=== PATIENT | male | born 1995 | race Caucasian/White ===

== ENCOUNTER 2023-11-19 22:10 | Emergency (ER) | payer OTHER ==
[2023-11-19 22:23] VITALS: O2SAT 98
--- NOTE | 2023-11-19 23:50 | ED Physician Documentation ---
PD HPI BACK PAIN - Stated complaint Stated Complaint: LOWER BACK PX - Chief complaint Chief Complaint: Back Pain - History obtained from History obtained from: Patient - Additional information Additional information: HPI from patient. Patient c/o sudden onset lower back pain this evening when he went to sit down in a chair. He had sudden onset of milder low back pain earlier today when bending forward. Pain is across lower back and is exacerbated with movement, no ameliorating factors. He says he has had "back issues" (per patient) over past three years with pain in similar location that is typically related to exertional activity. Although similar location, the back pain he has today is unusual for him in that there was minimal inciting event as well as the immediacy of onset. Denies numbness, weakness, loss of bowel/bladder control. Review of Systems Constitutional: denies: Fever GI: denies: Abdominal Pain : denies: Hematuria Musculoskeletal: reports: Back pain Neurologic: denies: Focal weakness, Numbness PD PAST MEDICAL HISTORY - Past Medical History Past Medical History: No - Past Surgical History Past Surgical History: Yes General: Hiatal hernia repair Ortho: Other - Present Medications Home Medications: Ambulatory Orders Medication Instructions Recorded Confirmed Cyclobenzaprine [Flexeril] 10 mg PO TID PRN #20 tablet 11/20/23 HYDROcod/ACETAM 5/325 [[place] 5/325] 1 - 2 tablet PO Q6H PRN #14 tablet 11/20/23 Ibuprofen [Motrin] 600 mg PO Q6H PRN #20 tab 11/20/23 - Allergies Allergies/Adverse Reactions: Allergies Allergy/AdvReac Type Severity Reaction Status Date / Time No Known Drug Allergies Allergy Verified 11/19/23 22:18 - Social History Does the pt smoke?: No Smoking Status: Never smoker Does the pt drink ETOH?: Yes ETOH Use: Beer Does the pt have substance abuse?: No - Immunizations Immunizations are current?: Yes - POLST Patient has POLST: No PD ED PE NORMAL - Vitals Vital signs reviewed: Yes - General General: Alert and oriented X 3, No acute distress (NAD at rest), Well developed/nourished - Back Back: No spinal TTP, Other (no sacral erythema, fluctuance/abscess) - Neuro Neuro: No motor deficit (5/5 bilateral plantarflexion), No sensory deficit, Other (bilateral 2+ patellar DTR without clonus) Results - Vitals Vitals: Oxygen O2 Source Room air PD Medical Decision Making - ED course Complexity details: considered differential, d/w patient ED course: atraumatic low back pain likely musculoskeletal in origin. No "red flags" such as fever, weakness, numbness, loss of bowel/bladder continence. He is given 600m g PO ibuprofen and take-home pack of vicodin and flexeril. Prescriptions for these medications are electronically submitted to [facility] pharmacy in [place] Departure - Departure Disposition: 01 Home, Self Care Clinical Impression: Back pain Qualifiers: Back pain location: low back pain Chronicity: acute Back pain laterality: midline Sciatica presence: without sciatica Qualified Code(s): M54.50 - Low back pain, unspecified Condition: Good Instructions: ED Neck Back Pain General Follow-Up: DIOGO Hung [Provider Group] Prescriptions: Cyclobenzaprine [Flexeril] 10 mg PO TID PRN #20 tablet PRN Reason: Spasms Ibuprofen [Motrin] 600 mg PO Q6H PRN #20 tab PRN Reason: Pain HYDROcod/ACETAM 5/325 [[place] 5/325] 1 - 2 tablet PO Q6H PRN #14 tablet PRN Reason: Pain Comments: Follow-up with your primary care provider, next available appointment, for reevaluation. I have electronically submitted prescriptions for cyclobenzaprine (muscle relaxant), Vicodin (narcotic/opiate pain medication), and ibuprofen 600 mg tablets to the [facility] pharmacy in [place]. Take the ibuprofen as per the prescription instructions; the ibuprofen alone is not adequately controlling your symptoms, you can then take the other medications as per the prescription instructions. I am prescribing a short course of narcotic pain medication for you. These are potentially dangerous and addictive medications that should be used carefully. These medications may constipate you. Take an roso-qyr-qyyayyp stool softener (docusate) twice daily with plenty of water while taking these medications. If you go 24 hours without a bowel movement, take drwr-fey-dijfalh miralax, per package instructions. Do not drink or drive while taking these medications. If you received narcotic or sedating medications while in the emergency department, do not drive for 24 hours. Store this medication in a safe, secure place and out of reach of children. It is a violation of federal law to give or sell this medication to another person or to use in a manner other than prescribed. The ED will not refill narcotic prescriptions, including prescriptions lost or stolen. To dispose of unwanted medications: 1. [facility] at [address] in [place] has a medication drop box. They accept prescription medications (in pill form) Friday through Friday 9:00 a.m. to 5:00 p.m. 2. [facility] accepts prescription medications (in pill form only) for disposal year round. Call for more information. 3. Contact the [facility] for the next [facility]ENNY sponsored prescription drug collection event. , [phone], or [phone]; Forms: Activity restrictions Discharge Date/Time: 11/20/23 00:40
[2023-11-20] MEDS ORDERED: IBUPROFEN 600 MG TABLET PO STA (00:15)
[2023-11-20] MEDS ORDERED: HYDROcod/ACET 5/325 Prepack 4 PO STA (00:20)
[2023-11-20] MEDS ORDERED: CYCLOBENZAPRINE 10 MG Prepack 2 PO PRN (00:21)
[2023-11-20 00:46] VITALS: BP 131/77
== END 2023-11-20 00:40 | disposition home or self-care (01) ==
LOC: ED 22:10
DX: M54.50 Low back pain, unspecified (principal)
CPT/HCPCS: 99282; 99283; A9270